=== PATIENT | female | born 1960 | race African-American/Black ===

== ENCOUNTER 2022-07-23 20:21 | Emergency (ER) | payer MEDICARE, OTHER ==
[~2022-07-23] VITALS: Ht 170.2 cm; Wt 112.9 kg
[~2022-07-23 20:21] MED LIST: METO25 PO; PARO10TA89 PO; QUET400T PO; RISP1TAB48 PO; SIMV-43 PO
[2022-07-24 00:10] LABS: BASOPHILS % (AUTO) 0.2 % (0.0-2.0); EOSINOPHILS % (AUTO) 0 % (1.0-6.0); HEMATOCRIT 43.4 % (36-46); HEMOGLOBIN 14.5 g/dL (12.0-16.0); LYMPHOCYTES # (AUTO) 0.4 K/uL (1.0-4.8); LYMPHOCYTES % (AUTO) 5.1 % (22.0-44.0); MEAN CORPUSCULAR HEMOGLOBIN 31.8 pg (26.0-34.0); MEAN CORPUSCULAR HGB CONC 33.4 G/dL (31.0-37.0); MEAN CORPUSCULAR VOLUME 95 fL (80-100); MONOCYTES # (AUTO) 0.6 K/uL (0.1-1.0); MONOCYTES % (AUTO) 8.3 % (2.0-9.0); NEUTROPHILS # (AUTO) 6.5 K/uL (1.8-7.7); PLATELET COUNT (AUTO) 205 K/uL (150-450); RED BLOOD CELL COUNT(AUTO) 4.57 MIL/uL (4.00-5.20); RED CELL DISTRIBUTION WIDTH 13.3 % (11.5-14.5)
[2022-07-24 00:14] LABS: NEUTROPHILS % (AUTO) 86.4 % (40.0-70.0)
[2022-07-24 00:19] LABS: ANION GAP 10 mmol/L (8-16); CALCIUM, TOTAL 9.2 mg/dL (8.8-10.5); CARBON DIOXIDE 27 mmol/L (22-29); CHLORIDE 100 mmol/L (98-107); CREATININE 1.53 mg/dL (0.60-1.30); GLOMERULAR FILTR. RATE CALC 41 mL/min (>60); GLUCOSE,RANDOM 134 mg/dL (70-110); POTASSIUM 3.4 mmol/L (3.5-5.1); SODIUM SERUM 137 mmol/L (136-145); UREA NITROGEN, BLOOD 25 mg/dL (7-18)
[2022-07-24 00:24] LABS: ALANINE AMINOTRANSFERASE 14 U/L (12-78); ALBUMIN 2.9 g/dL (3.4-5.0); ALKALINE PHOSPHATASE 72 U/L (46-116); ASPARTATE AMINOTRANSFERASE 18 U/L (15-37); BILIRUBIN,TOTAL 0.3 mg/dL (0.1-1.0); TOTAL PROTEIN, SERUM 6.9 g/dL (6.4-8.2)
[2022-07-24] MEDS ORDERED: NICOTINE 14 MG/24 HOUR PATCH TD ONE (03:45)
[2022-07-24] MEDS ORDERED: LORazepam 2 MG/ML VIAL IM ONE (07:45)
[2022-07-24 08:17] LABS: APPEARANCE,URINE CLEAR (CLEAR); BILIRUBIN,URINE NEGATIVE (NEGATIVE); GLUCOSE, URINE (UA) NEGATIVE (NEGATIVE); KETONES,URINE NEGATIVE (NEGATIVE); LEUKOCYTE ESTERASE ,URINE MODERATE (NEGATIVE); NITRATE,URINE NEGATIVE (NEGATIVE); OCCULT BLOOD,URINE TRACE (NEGATIVE); PH,URINE 5.5 (5.0-8.0); PROTEIN,URINE NEGATIVE (NEGATIVE); SPECIFIC GRAVITIY, URINE 1.009 (1.003-1.030); UROBILINOGEN,URINE <=1.0 mg/dL (<=1.0)
[2022-07-24 08:24] LABS: AMPHET/METH SCREEN,URINE NEGATIVE (NEGATIVE); BARBITURATE SCREEN, URINE NEGATIVE (NEGATIVE); BENZODIAZEPINES SCREEN,URINE NEGATIVE (NEGATIVE); CANNABINOID SCREEN,URINE NEGATIVE (NEGATIVE); COCAINE SCREEN,URINE NEGATIVE (NEGATIVE); METHADONE SCREEN, URINE NEGATIVE (NEGATIVE); OPIATE SCREEN,URINE NEGATIVE (NEGATIVE); PHENCYCLIDINE SCREEN,URINE NEGATIVE (NEGATIVE)
[2022-07-24 08:48] LABS: BACTERIA,URINE Few /HPF (None Seen); HYALINE CASTS, URINE 0-2 /LPF (None Seen); SQUAMOUS EPITHELIAL CELL,UR Rare /LPF (None Seen); WBC,URINE 0-2 /HPF (0-5)
[2022-07-24 13:18] VITALS: BP 133/74
== END 2022-07-24 13:22 | disposition home or self-care (01) ==
LOC: EMS 20:30
DX: F20.9 Schizophrenia, unspecified (principal); F41.9 Anxiety disorder, unspecified; F32.A Depression, unspecified; E78.00 Pure hypercholesterolemia, unspecified; I10 Essential (primary) hypertension; F17.210 Nicotine dependence, cigarettes, uncomplicated; Z88.0 Allergy status to penicillin
CPT/HCPCS: 99285; 80053; 85025; 36415; 81001; 80307 ×2; G0480; J2060

== ENCOUNTER 2024-12-27 09:43 | Inpatient (IN) | payer MEDICARE, OTHER ==
[~2024-12-27] VITALS: Ht 172.7 cm; Wt 94.3 kg
[2024-12-27 10:32] LABS: PLATELET COUNT (AUTO) 218 K/uL (150-450); RED BLOOD CELL COUNT(AUTO) 4.74 MIL/uL (4.00-5.20); RED CELL DISTRIBUTION WIDTH 14.1 % (11.5-14.5); WHITE BLOOD COUNT (AUTO) 6.0 K/uL (4.5-11.0)
[2024-12-27] MEDS ORDERED: LORazepam 2 MG/ML VIAL ONE (10:37)
[2024-12-27] MEDS: LORazepam 2 MG/ML VIAL IVP ONE (10:40)
[2024-12-27 10:45] LABS: SODIUM SERUM 143 mmol/L (136-145)
[2024-12-27 10:47] LABS: CREATININE 1.15 mg/dL (0.60-1.30); GLOMERULAR FILTR. RATE CALC 57 mL/min (>60); GLUCOSE,RANDOM 159 mg/dL (70-110); UREA NITROGEN, BLOOD 10 mg/dL (7-18)
[2024-12-27 10:48] LABS: CALCIUM, TOTAL 9.1 mg/dL (8.8-10.5)
[2024-12-27 10:55] LABS: LACTIC ACID 1.3 mmol/L (0.4-2.0)
[2024-12-27 10:57] LABS: TROPONIN I-HIGH SENSITIVITY 10 ng/L (<51)
[2024-12-27 10:59] LABS: ASPARTATE AMINOTRANSFERASE 18 U/L (15-37); TOTAL PROTEIN, SERUM 7.2 g/dL (6.4-8.2)
[2024-12-27 11:19] LABS: CREATINE KINASE, TOTAL ONLY 108 U/L (26-192)
[2024-12-27] MEDS ORDERED: METOPROLOL TARTRATE 50 MG TABLET ONE (13:58)
[2024-12-27] MEDS ORDERED: XANO1CAP4 PO (14:05)
[2024-12-27] MEDS ORDERED: TRAZ-283 PO (14:05)
[2024-12-27] MEDS ORDERED: FOLI-130 PO (14:05)
[2024-12-27] MEDS ORDERED: METO-416 PO (14:05)
[2024-12-27] MEDS ORDERED: ACET-3862 PO (14:05)
[2024-12-27] MEDS ORDERED: TOPI-258 PO (14:05)
[2024-12-27] MEDS ORDERED: ATOR20TA65 PO (14:05)
[2024-12-27] MEDS ORDERED: PARO-37 PO (14:05)
[2024-12-27] MEDS ORDERED: PALI234D IM (14:05)
[2024-12-27] MEDS ORDERED: QUET400T13 PO (14:05)
[2024-12-27] MEDS: METOPROLOL TARTRATE 50 MG TABLET PO ONE (14:07)
[2024-12-27 14:17] LABS: APPEARANCE,URINE HAZY (CLEAR); GLUCOSE, URINE (UA) NEGATIVE (NEGATIVE); LEUKOCYTE ESTERASE ,URINE MODERATE (NEGATIVE); NITRATE,URINE NEGATIVE (NEGATIVE); OCCULT BLOOD,URINE NEGATIVE (NEGATIVE); PH,URINE DRUG SCREEN 7.0 (5.0-8.0); SPECIFIC GRAVITIY, URINE 1.012 (1.003-1.030)
[2024-12-27 14:28] LABS: SQUAMOUS EPITHELIAL CELL,UR Rare /LPF (None Seen)
[2024-12-27 14:46] LABS: ALCOHOL, URINE DRUG SCREEN NEGATIVE (NEGATIVE); AMPHET/METH SCREEN,URINE NEGATIVE (NEGATIVE); BARBITURATE SCREEN, URINE NEGATIVE (NEGATIVE); CANNABINOID SCREEN,URINE NEGATIVE (NEGATIVE); COCAINE SCREEN,URINE NEGATIVE (NEGATIVE); METHADONE SCREEN, URINE NEGATIVE (NEGATIVE)
[2024-12-27] MEDS ORDERED: MAGNESIUM HYDROXIDE SUSPENSION 30 ML UDCUP PO PRN (16:00)
[2024-12-27] MEDS ORDERED: ONDANSETRON HCL 4 MG/2 ML VIAL IVP PRN (16:00)
[2024-12-27] MEDS: HEPARIN SODIUM,PORCINE 5,000 UNITS/ML VIAL SQ SCH (16:08)
[2024-12-27 18:47] VITALS: BP 142/108; PULSE 73; RESP 19; TEMP 97.5; O2SAT 98
[2024-12-27 20:14] VITALS: BP 116/84; PULSE 74; RESP 19; TEMP 98.2; O2SAT 98
[2024-12-28 00:12] VITALS: BP 129/84; PULSE 78; RESP 15; TEMP 98.2; O2SAT 98
[2024-12-28 04:26] VITALS: BP 136/87; PULSE 77; RESP 17; TEMP 98.8; O2SAT 96
[2024-12-28 06:14] LABS: PLATELET COUNT (AUTO) 203 K/uL (150-450); RED BLOOD CELL COUNT(AUTO) 4.40 MIL/uL (4.00-5.20); RED CELL DISTRIBUTION WIDTH 13.9 % (11.5-14.5); WHITE BLOOD COUNT (AUTO) 4.1 K/uL (4.5-11.0)
[2024-12-28 06:50] LABS: CALCIUM, TOTAL 8.9 mg/dL (8.8-10.5); CREATININE 0.83 mg/dL (0.60-1.30); GLOMERULAR FILTR. RATE CALC > 60 mL/min (>60); GLUCOSE,RANDOM 103 mg/dL (70-110); SODIUM SERUM 144 mmol/L (136-145); UREA NITROGEN, BLOOD 9 mg/dL (7-18)
[2024-12-28 07:26] VITALS: BP 159/91; PULSE 78; RESP 18; TEMP 98.1; O2SAT 97
[2024-12-28] MEDS: PANTOPRAZOLE SODIUM 40 MG/VIAL IVP SCH (08:37)
[2024-12-28 11:19] VITALS: BP 139/92; PULSE 76; RESP 18; TEMP 97.3; O2SAT 100
[2024-12-28 15:29] VITALS: BP 130/84; PULSE 88; RESP 18; TEMP 98.2; O2SAT 99
[2024-12-28] MEDS: TOPIRAMATE 100 MG TABLET PO SCH (15:51)
[2024-12-28] MEDS: XANOMELINE TART/TROSPIUM CHLOR 100-20 MG CAPSULE PO SCH (17:05)
[2024-12-28 20:10] VITALS: BP 148/89; PULSE 86; RESP 19; TEMP 98; O2SAT 99
[2024-12-29] VITALS: BP 151/85; PULSE 91; RESP 20; TEMP 98.6; O2SAT 96
[2024-12-29 04:30] VITALS: BP 155/86; PULSE 94; RESP 20; TEMP 98.8; O2SAT 96
[2024-12-29 07:21] VITALS: BP 162/90; PULSE 92; RESP 18; TEMP 98; O2SAT 98
[2024-12-29 11:07] VITALS: BP 157/98; PULSE 114; RESP 18; TEMP 98; O2SAT 98
[2024-12-29 15:30] VITALS: BP 166/99; PULSE 100; RESP 18; TEMP 98; O2SAT 98
[2024-12-29 19:20] VITALS: BP 153/93; PULSE 95; RESP 18; TEMP 98.6; O2SAT 96
[2024-12-30 00:35] VITALS: BP 155/98; PULSE 93; RESP 18; TEMP 98.5; O2SAT 96
[2024-12-30 02:43] VITALS: BP 156/101; PULSE 102; RESP 20; TEMP 99.3; O2SAT 97
[2024-12-30 08:35] VITALS: BP 109/80; PULSE 92; RESP 18; TEMP 97.5; O2SAT 96
[2024-12-30] MEDS: LORazepam 2 MG/ML VIAL IVP PRN (10:16)
[2024-12-30] MEDS: ACETAMINOPHEN 325 MG TABLET PO PRN (12:41)
[2024-12-30 16:00] VITALS: BP 146/104; PULSE 88; RESP 18; TEMP 98.2; O2SAT 98
[2024-12-30 20:19] VITALS: BP 141/91; PULSE 101; RESP 18; TEMP 98.2; O2SAT 94
[2024-12-31 03:39] VITALS: BP 123/95; PULSE 103; RESP 18; TEMP 98.2; O2SAT 97
[2024-12-31 08:11] VITALS: BP 145/104; PULSE 129; RESP 18; TEMP 98.2; O2SAT 99
[2024-12-31 12:24] VITALS: BP 148/90; PULSE 92; RESP 18; O2SAT 99
[2024-12-31] MEDS: METOPROLOL TARTRATE 25 MG TABLET PO SCH (12:28)
[2024-12-31 15:28] VITALS: BP 136/94; PULSE 98; RESP 18; TEMP 98.6; O2SAT 99
[2024-12-31 19:55] VITALS: BP 139/103; PULSE 99; RESP 18; TEMP 98.6; O2SAT 97
[2025-01-01 03:50] VITALS: BP 146/102; PULSE 100; RESP 18; TEMP 98.2; O2SAT 98
[2025-01-01 08:03] VITALS: BP 115/86; PULSE 110; RESP 18; TEMP 97.7; O2SAT 99
[2025-01-01 15:39] VITALS: BP 127/88; PULSE 103; RESP 19; TEMP 97.8; O2SAT 98
[2025-01-01 20:16] VITALS: BP 151/99; PULSE 81; RESP 19; TEMP 99; O2SAT 96
[2025-01-01 21:30] VITALS: BP 142/88; PULSE 88; TEMP 98.4
[2025-01-02 02:59] VITALS: BP 137/91; PULSE 101; RESP 19; TEMP 98.1; O2SAT 97
[2025-01-02 07:44] VITALS: BP 144/94; PULSE 120; RESP 18; TEMP 98; O2SAT 97
[2025-01-02] MEDS ORDERED: HEPA50009 SQ (11:23)
[2025-01-02] MEDS ORDERED: PANT-31 PO (11:24)
[2025-01-02] MEDS ORDERED: ACET-2247 PO (11:25)
[2025-01-02] MEDS ORDERED: MAGN-169 PO (11:26)
[2025-01-02] MEDS ORDERED: CLON0.1T2 PO (11:26)
== END 2025-01-02 15:15 | DRG 71 ==
LOC: EMS 09:45 → EDH 15:48 → 5S 18:15 → 5N 20:14 → 4E 12-30 02:30
PROVIDERS: ADMIT Internal Medicine; ATTEND Internal Medicine
DX: G93.40 Encephalopathy, unspecified (principal); J98.11 Atelectasis; E66.9 Obesity, unspecified; F32.A Depression, unspecified; F41.9 Anxiety disorder, unspecified; I11.9 Hypertensive heart disease without heart failure; E78.00 Pure hypercholesterolemia, unspecified; F25.0 Schizoaffective disorder, bipolar type; R00.0 Tachycardia, unspecified; F28 Other psychotic disorder not due to a substance or known physiological condition; J44.9 Chronic obstructive pulmonary disease, unspecified; F03.90 Unspecified dementia, unspecified severity, without behavioral disturbance, psychotic disturbance, mood disturbance, and anxiety; Z88.0 Allergy status to penicillin; Z87.891 Personal history of nicotine dependence; Z79.899 Other long term (current) drug therapy; Z91.81 History of falling; Z68.31 Body mass index [BMI] 31.0-31.9, adult
CPT/HCPCS: 70450; 71045; 72125; 80048; 80076; 80307; 81001; 82140; 82550; 83605; 84443; 84484; 85025; 85610; 85730; 87040; 93005; 96374; 99285; G0378; J1644; J2060; J2470; 36415-L1; 36415-TC